=== PATIENT | female | born 1985 | race Caucasian/White ===

== ENCOUNTER → 2022-03-17 | Outpatient (CLI) | payer BC ==
[2022-03-17 15:16] LABS: Basophils # (A) 0.04 X 10*3/uL (0.00-0.10); Basophils % (A) 0.5 %; Eosinophils % (A) 1.1 %; HCT 41.4 % (37.2-46.3); HGB 13.3 g/dL (12.0-15.0); Immature Grans, Automated 0.2 %; Lymphocytes % (A) 37.7 %; MCH 30.3 pg (27.0-32.0); MCHC 32.1 g/dL (32.0-37.0); MCV 94.3 fL (80.0-97.0); Mean Platelet Volume 10.8 fL (9.5-12.2); Monocytes # (A) 0.67 X 10*3/uL (0.20-1.00); Monocytes % (A) 7.6 %; NRBC Per 100 WBC 0 /100 WBCS (0.0-0.0); Neutrophils # (A) 4.63 X 10*3/uL (1.80-7.70); Neutrophils % (A) 52.9 %; Platelet Count 236 X 10*3/uL (140-440); RBC 4.39 X 10*6/uL (4.10-5.20); RDW 12.3 % (11.5-14.5); WBC 8.76 X 10*3/uL (4.50-10.00)
[2022-03-17 15:36] LABS: African American GFR (CKD) 129.9 (60.0-200.0); Anion Gap 10.6 mmol/L (10.00-18.00); Blood Urea Nitrogen 11.8 mg/dL (9.0-27.0); Carbon Dioxide 26.3 mmol/L (20.0-27.5); Non-African American GFR(CKD) 112.1 (60.0-200.0); Potassium 4.5 mmol/L (3.5-5.5)
== END | disposition home or self-care (01) ==
LOC: LABPAT 08:56
PROVIDERS: ATTEND Obstetrics & Gynecology
DX: Z01.812 Encounter for preprocedural laboratory examination (principal); N39.3 Stress incontinence (female) (male); N81.11 Cystocele, midline
CPT/HCPCS: 80051; 82565; 82947; 84520; 85025; 87086

== ENCOUNTER → 2022-06-02 | Outpatient (CLI) | payer BC ==
[2022-06-02 16:18] LABS: Basophils # (A) 0.05 X 10*3/uL (0.00-0.10); Basophils % (A) 0.5 %; Eosinophils # (A) 0.12 X 10*3/uL (0.04-0.35); Eosinophils % (A) 1.3 %; HGB 13.5 g/dL (12.0-15.0); Immature Grans, Automated 0.2 %; Lymphocytes # (A) 3.48 X 10*3/uL (0.90-5.00); Lymphocytes % (A) 36.3 %; MCH 29.4 pg (27.0-32.0); MCHC 30.7 g/dL (32.0-37.0); MCV 95.9 fL (80.0-97.0); Mean Platelet Volume 11.2 fL (9.5-12.2); Monocytes # (A) 0.75 X 10*3/uL (0.20-1.00); Monocytes % (A) 7.8 %; NRBC Per 100 WBC 0 /100 WBCS (0.0-0.0); Neutrophils # (A) 5.17 X 10*3/uL (1.80-7.70); Neutrophils % (A) 53.9 %; Platelet Count 209 X 10*3/uL (140-440); RBC 4.59 X 10*6/uL (4.10-5.20); RDW 12.7 % (11.5-14.5); WBC 9.59 X 10*3/uL (4.50-10.00)
[2022-06-02 16:20] LABS: African American GFR (CKD) 135.9 (60.0-200.0); Anion Gap 9.9 mmol/L (10.00-18.00); Blood Urea Nitrogen 11.5 mg/dL (9.0-27.0); Carbon Dioxide 25.1 mmol/L (20.0-27.5); Non-African American GFR(CKD) 117.3 (60.0-200.0); Potassium 4.2 mmol/L (3.5-5.5)
== END | disposition home or self-care (01) ==
LOC: LABPAT 08:42
PROVIDERS: ATTEND Obstetrics & Gynecology
DX: Z01.812 Encounter for preprocedural laboratory examination (principal); N81.4 Uterovaginal prolapse, unspecified
CPT/HCPCS: 80051; 82565; 82947; 84520; 85025; 87086

== ENCOUNTER 2022-06-10 07:28 | Day surgery (SDC) | payer BC ==
[2022-06-04 11:22] VITALS: BMI 30.7
--- NOTE | 2022-06-04 13:16 | P.HPOB ---
History of Present Illness H&P Date: 06/04/22 Chief Complaint: Uterovaginal Prolapse 37 year old who presents with stage 2 uterovaginal prolapse. Approximately 3 months ago she underwent anterior repair and TVT Sling. Her bladder prolapse and stress urinary incontinence have resolved, but now she feels a significant and bothersome bulge from the uterovaginal prolapse and desires surgical repair. Past Medical History Past Medical History: No Reported History History of Any Multi-Drug Resistant Organisms: None Reported Additional Past Surgical History / Comment(s): Cystocele repair, TVT Midurethral sling, ovarian cystectomy Past Anesthesia/Blood Transfusion Reactions: No Reported Reaction Past Psychological History: No Psychological Hx Reported Smoking Status: Never smoker Past Alcohol Use History: None Reported Past Drug Use History: None Reported - Past Family History Mother Family Medical History: No Reported History Medications and Allergies Home Medications Medication Instructions Recorded Confirmed Type No Known Home Medications 06/04/22 06/04/22 History Allergies Allergy/AdvReac Type Severity Reaction Status Date / Time No Known Allergies Allergy Verified 06/04/22 11:14 Exam Intake and Output 06/03/22 06/04/22 06/04/22 22:59 06:59 14:59 Other: Weight 83.915 kg Focused physical exam is performed. Abdomen soft, nontender to palpation. Normal female external genitalia. Anterior wall of vagina well supported s/p cystocele repair. Grade 2 uterovaginal prolapse noted. Assessment and Plan Assessment: 37 yo with grade 2 uterovaginal prolapse presents for vaginal hysterectomy, bilateral salpingectomy, possible laparotomy, possible bilateral oophorectomy. Plan: Risks, benefits, and alternatives to surgery were discussed including risk of bleeding, infection, damage to surrounding structures including bladder/bowels/ureters/ovaries, risk of laparotomy, and risk of postoperative VTE. Patient understands these risks and desires to proceed with surgery as scheduled. Time with Patient: Less than 30 (15 minutes)
[~2022-06-10 07:28] MED LIST: DEXAMETHASONE SOD PHOSPHATE 4 MG/ML 1 ML VIAL IV ONE; HYDROmorphone 0.5 MG/0.5 ML SYRINGE IVP PRN; LACTATED RINGERS 1,000 ML IV SCH; ONDANSETRON 4 MG/2 ML VIAL IVP ONE; Pre Op ABX Message 1 EACH MISC MISCELLANE ONE
[2022-06-10] MEDS ORDERED: LIDOCAINE 1% (10MG/ML) FOR IV START INTRADERMA ONE (08:09)
[2022-06-10] MEDS ORDERED: MIDAZOLAM 2 MG/2 ML VIAL IV ONE (08:45)
[2022-06-10] MEDS ORDERED: diphenhydrAMINE 50 MG/ML 1 ML VIAL ONE (09:05)
[2022-06-10] MEDS ORDERED: diphenhydrAMINE 50 MG/ML 1 ML VIAL IVP ONE (09:05)
[2022-06-10] MEDS ORDERED: KETOROLAC 15 MG/ML 1 ML VIAL ONE (09:26)
[2022-06-10] MEDS ORDERED: MORPHINE SULFATE (PF) 0.3 MG/0.3 ML SYR ONE (09:26)
[2022-06-10] MEDS ORDERED: PROPOFOL 10 MG/ML 20 ML VIAL IV ONE (09:26)
[2022-06-10] MEDS ORDERED: SUCCINYLCHOLINE CHLORIDE 200 MG/10 ML VIAL IV ONE (09:26)
[2022-06-10] MEDS ORDERED: fentaNYL (PF) 50 MCG/ML 2 ML AMP ONE (09:26)
[2022-06-10] MEDS ORDERED: SODIUM CHLORIDE 0.9% 50 ML with ceFAZolin 2,000 MG IV ONE ×2 (09:40)
[2022-06-10] MEDS ORDERED: VASOPRESSIN 20 UNIT/ML 1 ML VIAL SQ ONE (09:53)
[2022-06-10] MEDS ORDERED: ESTRADIOL 0.1 MG/GM VAGINAL CREAM 42.5 GM TUBE VAGINAL ONE (09:55)
[2022-06-10] MEDS ORDERED: diphenhydrAMINE 50 MG/ML 1 ML VIAL IVP PRN (10:48)
[2022-06-10] MEDS ORDERED: METOCLOPRAMIDE 5 MG/ML 2 ML VIAL IVP PRN (10:48)
[2022-06-10] MEDS ORDERED: ONDANSETRON 4 MG/2 ML VIAL IVP PRN (10:48)
--- NOTE | 2022-06-10 10:48 | P.OP ---
Date of Procedure: 06/10/22 Preoperative Diagnosis: Stage 2 Uterovaginal Prolapse Postoperative Diagnosis: Same Procedure(s) Performed: Vaginal Hysterectomy, Bilateral Salpingectomy Implants: None Anesthesia: VIOLETTA Surgeon: Rebeka Davis [employer] Manager #1: Radha Soares Estimated Blood Loss (ml): 20 IV fluids (ml): 500 Urine output (ml): 50 Pathology: other (cervix, uterus, and bilateral fallopian tubes) Condition: stable Disposition: floor Indications for Procedure: This is a 37 year old female with grade 2 uterovaginal prolapse presents for vaginal hysterectomy, bilateral salpingectomy, possible laparotomy, possible bilateral oophorectomy. Risks, benefits, and alternatives to surgery were discussed including risk of bleeding, infection, damage to surrounding structures including bladder/bowels/ureters/ovaries, risk of laparotomy, and risk of postoperative VTE. Patient understands these risks and desires to proceed with surgery as scheduled. Operative Findings: Normal appearing cervix, uterus, bilateral fallopian tubes, and bilateral ovaries. Description of Procedure: Prior to the beginning of the procedure the team paused to verify the patient's identity, as well as the procedure to be performed and the correct side/site. All equipment required was ready and available. The patient was positioned appropriately. Patient was cleaned and draped and legs were placed in lithotomy position using Jose stirrups. Meza catheter was placed to drain the bladder. A weighted speculum was placed in the posterior vaginal vault. The cervix was grasped with a double-tooth tenaculum. Vasopressin was injected circumstantially around the cervix. With downward traction, a circumferential incision was made along the vaginal mucosa overlying the reflection. This allowed dissection and entrance into the posterior cul-de-sac. An 0-Vicryl suture was placed to tag the posterior peritoneum. At this time, the uterosacral ligaments were visualized. These were clamped and ligated with 0-Vicryl suture. The uterosacral ligaments were held bilaterally. The cervicovesical space was then created by both blunt and sharp dissection allowing the cardinal ligaments to be visualized. These were clamped and ligated with 0-Vicryl suture as well. Once in the cervicovesical space the uterosacral-cardinal ligament complex was completely ligated with 0-Vicryl suture. The uterine arteries were clamped and ligated with 0-Vicryl suture. The claritza clamps were moved sequentially upward on the uterus until a small adnexal pedicle remained. The anterior cul-de-sac was now entered bluntly. The uterus was inverted and the pedicles were cut. The uterine specimen was delivered and sent for pathology. Bilateral fallopian tubes were grapsed, ligated with a [id number] stitch, and cut. Bilateral uteroovarian ligaments were doubly ligated first with a transfixing 0-Vicryl suture and then reinforced with a free 0-Vicryl tie in the usual fashion. The large weighted speculum was removed and replaced with the small weighted speculum. The peritoneal layer was closed with the 0-Vicryl suture in a purse-string fashion. A modified Jacob Culdoplasty was performed with the uterosacral ligaments held by pieces of 0- Vicryl. The vaginal cuff inferior and superior to the level of the Jacob Culdoplasty was closed with 0-Vicryl suture in a running fashion. After completion of the case, a meza catheter was inserted and noted to move freely into the urethra without tension. Clear urine was noted to drain from the catheter. Excellent hemostasis was noted at the end of the case. The vagina was packed with 1-inch iodoform packing coated in vaginal estrace cream. All instruments were removed from the patient. She was cleaned, dried, and awakened from anesthesia without difficulty. Sponge, lap, instrument, and needle counts were correct x2. She was taken to the PACU in stable condition.
--- NOTE | 2022-06-10 13:45 | P.ANPRN ---
Procedure Note - Anesthesia - Epidural/Spinal Spinal Time Out Performed: Yes Date of Procedure: 06/10/22 Procedure Start Time: 08:45 Procedure Stop Time: 08:50 Location of Patient: PreOp Indication: Acute Post-Operative Pain, Requested by Surgeon Sedation Type: Sedate with meaningful contact maintained Preparation: Sterile Prep Position: Sitting Needle Guage: 25 Blood Aspirated: No Pain Paresthesia on Injection Noted: No Events: Uneventful and Well Tolerated (Duramorph 300 mics plus fentanyl 25 mics given intrathecally)
[2022-06-10] MEDS: SIMETHICONE 80 MG CHEWABLE PO PRN (16:59)
[2022-06-10] MEDS: IBUPROFEN 600 MG TAB PO PRN (16:59)
[2022-06-10] MEDS: LACTATED RINGERS 1,000 ML IV SCH ×2 (19:41→21:04)
[2022-06-11] MEDS: IBUPROFEN 600 MG TAB PO PRN (05:33)
[2022-06-11] MEDS: SIMETHICONE 80 MG CHEWABLE PO PRN (05:34)
[2022-06-11 07:43] LABS: Basophils % (A) 0 %; Eosinophils # (A) 0.1 k/uL (0-0.7); Eosinophils % (A) 0 %; HCT 36.7 % (34.0-46.0); HGB 11.9 gm/dL (11.4-16.0); Lymphocytes % (A) 23 %; MCH 29.6 pg (25.0-35.0); MCHC 32.4 g/dL (31.0-37.0); MCV 91.3 fL (80.0-100.0); Mean Platelet Volume 8.1; Monocytes # (A) 0.6 k/uL (0-1.0); Monocytes % (A) 5 %; Neutrophils # (A) 8.7 k/uL (1.3-7.7); Neutrophils % (A) 69 %; Platelet Count 163 k/uL (150-450); RBC 4.02 m/uL (3.80-5.40); RDW 12.8 % (11.5-15.5); WBC 12.6 k/uL (3.8-10.6)
--- NOTE | 2022-06-11 07:51 | P.PN ---
Progress Note - Text Progress Note Date: 06/11/22 Postop day 1 from hysterectomy with intrathecal morphine given for postop pain management. Patient is doing well. Pain is well controlled. On visual analog scale 1/10 Mild itching present No nausea or vomiting reported. No Headache or weakness and numbness in the legs. No complications from spinal anesthesia.
[2022-06-11 07:59] VITALS: BP 121/73; PULSE 52; RESP 16; TEMP 98.4
--- NOTE | 2022-06-11 08:17 | P.DS ---
Providers Expected date of discharge: 06/11/22 Attending physician: Rebeka Davis MD Primary care physician: Stated None - Discharge Diagnosis(es) (1) Uterine prolapse Current Visit: Yes Status: Acute (2) Cystocele Current Visit: No Status: Acute (3) Stress incontinence (female) (male) Current Visit: No Status: Acute Hospital Course: Is a 37-year-old 4 para 3 woman who was admitted for total vaginal hysterectomy and bilateral salpingo-oophorectomy for uterine prolapse. Please see the admission history and physical for complete details. She went to the operating room on 06/10/2022 and had an uncomplicated procedure done under general anesthetic. Her postoperative course was unremarkable. By the evening of postoperative day 0 she was ambulating and tolerating a general diet. Her pain was well controlled. By postoperative day #1 her King catheter was removed and she was able to void spontaneously and without difficulty. She had scant vaginal bleeding and her pain remained well controlled. Her vital signs were stable and her postoperative hemoglobin and hematocrit were within normal limits. She was therefore discharged home with routine instructions for postoperative care and follow-up. Procedures: Total vaginal hysterectomy with bilateral salpingectomy Patient Condition at Discharge: Good Plan - Discharge Summary Discharge Rx Participant: Yes New Discharge Prescriptions: No Action No Known Home Medications Discharge Medication List No Known Home Medications 06/04/22 [History] Activity/Diet/Wound Care/Special Instructions: Follow-up in the office in 2 weeks postoperatively. Contact the office with any concerning signs or symptoms including heavy vaginal bleeding, severe abdominal or pelvic pain, inability to void, fever greater than 100.5, redness or swelling of the lower extremities. May use [id number] ibuprofen 600 mg every 6 hours as needed for pain or addition Tylenol extra strength every 6-8 hours as needed for pain. No intercourse, nothing in the vagina for 6 weeks postoperatively. No heavy lifting. Discharge Disposition: HOME SELF-CARE
[2022-06-11] MEDS ORDERED: ACETAMINOPHEN TAB 325 MG TAB PO PRN (10:49)
== END 2022-06-11 08:35 | disposition home or self-care (01) ==
LOC: OR 07:28 → 4FBP 11:12 → OR 06-11 08:35
PROVIDERS: ATTEND Obstetrics & Gynecology
DX: N80.00 Endometriosis of the uterus, unspecified (principal); N81.2 Incomplete uterovaginal prolapse; G89.18 Other acute postprocedural pain; Z98.890 Other specified postprocedural states
CPT/HCPCS: 58262; 81025; 86900; 86901; 85025; 86850; 88307; J2250; J0330; J1200; J1100; J2405; J0690; J2274; J3010; J1885; J2704

== ENCOUNTER → 2023-11-17 | Outpatient (CLI) | payer BC ==
--- NOTE | 2023-11-17 09:53 | CT ---
EXAMINATION TYPE: CT sinus wo con DATE OF EXAM: 11/17/2023 COMPARISON: None HISTORY: Chronic sinusitis, headaches, dizziness CT DLP: 505.[address] of the paranasal sinuses was performed in the axial and coronal planes. Bone and soft tissue settings are submitted. The paranasal sinuses demonstrate normal aeration and development. The paranasal sinuses are free of mucosal thickening or air fluid level. Mucous retention cyst at the base of the left maxillary sinus measuring 1.8 cm. The osteal meatal units are patent bilaterally. The nasal septum is midline. No bony destructive changes are seen within the field of view. IMPRESSION: Mucous retention cyst at the base of the left maxillary sinus measuring 1.8 cm. [facility], , 11/17/2023 9:51 AM
== END | disposition home or self-care (01) ==
LOC: RADCTMAIN 08:55
PROVIDERS: ATTEND Otolaryngology
DX: J32.0 Chronic maxillary sinusitis
CPT/HCPCS: 70486